=== PATIENT | female | born 1925 | race Caucasian/White ===

== ENCOUNTER 2016-10-02 09:57 | Emergency (ER) | payer OTHER ==
[~2016-10-02] VITALS: Ht 152.4 cm; Wt 71.8 kg
[~2016-10-02 09:57] MED LIST: ASPIR 8181 M1 PO; CALCIUM CITRAT200 MG PO; CENTRUM COMPLE1 EACH PO; DAIRY DIGES3000 UNIT PO; DEXILANT60 MG PO; FLEXERIL5 MG PO; HYDROCODON-ACE1 EAC7 PO; LEVOTHYROXINE75 MCG PO; LOPERAMIDE2 M1 PO; NEXIUM40 MG PO; OMEGA 3-6-91200 MG PO; OSTERA TABLET1 EACH PO; PROTONIX40 MG PO; SOTALOL80 MG PO; SYNTHROID75 MCG PO; SYSTANE 0.3-0.1 EACH BOTH EYES; TIROSINT75 MCG PO; ULTRAM50 MG; VICODIN,LORT1 TABLET PO; VITAMIN D1000 UNIT PO
[2016-10-02 10:50] LABS: HEMATOCRIT 39.5 % (36.0-46.0); MCH 30.5 PG (29.0-34.0); MCHC 34.7 G/DL (30.0-36.0); MEAN PLAT.VOLUME 10.2 uM^3 (9.5-12.4); PLATELET COUNT 252 K/uL (156-360); RBC DIS.WIDTH-CV 12.9 % (11.8-14.6); RBC DIS.WIDTH-SD 40.7 % (39-53); RED BLOOD COUNT 4.49 M/uL (3.80-5.20); WHITE BLOOD COUNT 9.3 K/uL (4.1-10.2)
[2016-10-02 10:59] LABS: CHLORIDE 107 mEq/L (99-109); POTASSIUM 4.1 mEq/L (3.7-5.4); SODIUM 139 mEq/L (136-147)
[2016-10-02 11:01] LABS: GLUCOSE 93 mg/dL (70-99)
[2016-10-02 11:02] LABS: ANION GAP 11 MEQ/L (2-14)
[2016-10-02 11:04] LABS: GFR ESTIMATE (CALCULATED) > 59 mL/min/
[2016-10-02 11:05] LABS: UREA NITROGEN (BUN) 18 mg/dL (9-23)
[2016-10-02] MEDS ORDERED: LEVO-T50 MCG PO (11:11)
[2016-10-02 12:06] LABS: ADD MIUA? YES; BILIRUBIN NEGATIVE; BLOOD LARGE; COLOR YELLOW ((YELLOW)); GLUCOSE (STRIP) NEGATIVE; KETONES TRACE; LEUKOCYTES MODERATE; NITRITE NEGATIVE; PROTEIN (STRIP) 30; SPECIFIC GRAVITY 1.021 (1.000-1.030); UROBILINOGEN 0.2 MG/DL (0.2-1.0)
[2016-10-02 12:25] LABS: BACTERIA 2+; CASTS NONE SEEN /LPF; CRYSTALS NONE SEEN; EPITHELIAL CELLS 2+; MUCUS RARE; RED BLOOD CELLS 30-40 /HPF (0-5); UCUL ADDED? YES; WHITE BLOOD CELLS 20-30 /HPF (0-5)
[2016-10-02] MEDS ORDERED: KEFLEX500 MG PO (13:52)
[2016-10-02 14:43] VITALS: BP 161/80
== END 2016-10-02 14:37 | disposition home or self-care (01) ==
LOC: EME 09:57
DX: N32.9 Bladder disorder, unspecified (principal); N39.0 Urinary tract infection, site not specified; K21.9 Gastro-esophageal reflux disease without esophagitis
CPT/HCPCS: 74176; 80048; 81003; 85027; 87086; 99281; 99284; J7030

== ENCOUNTER → 2016-10-06 | Outpatient (CLI) | payer MEDICARE, OTHER ==
[~2016-10-06] MED LIST changes: +KEFLEX500 MG PO; +LEVO-T50 MCG PO
== END | disposition home or self-care (01) ==
LOC: CDC 09:30
DX: R94.31 Abnormal electrocardiogram [ECG] [EKG] (principal); D41.4 Neoplasm of uncertain behavior of bladder; Z95.0 Presence of cardiac pacemaker
CPT/HCPCS: 93000

== ENCOUNTER 2016-12-14 17:12 | Emergency (ER) | payer OTHER ==
[~2016-12-14] VITALS: Ht 152.4 cm; Wt 70.8 kg
[2016-12-14] MEDS ORDERED: SYSTANE ULTRA 015 ML BOTH EYES (17:55)
[2016-12-14] MEDS ORDERED: TRAMADOL HCL50 MG PO (17:55)
[2016-12-14] MEDS ORDERED: MYRBETRIQ50 MG PO (17:55)
[2016-12-14 18:00] VITALS: BP 136/59
[2016-12-14 18:19] LABS: ADD MIUA? YES; BILIRUBIN NEGATIVE; BLOOD MODERATE; COLOR YELLOW ((YELLOW)); GLUCOSE (STRIP) NEGATIVE; KETONES 5; LEUKOCYTES MODERATE; NITRITE NEGATIVE; PROTEIN (STRIP) 100; SPECIFIC GRAVITY 1.019 (1.000-1.030); UROBILINOGEN 0.2 MG/DL (0.2-1.0)
[2016-12-14 18:38] LABS: EOSINOPHIL (%) 1.3 % (0-5); EOSINOPHIL COUNT 0.2 K/uL (0-0.3); IMMATURE GRANULOCYTE (%) 0.4 % (0.0-0.7); IMMATURE GRANULOCYTE COUNT 0.1 K/uL; INSTRUMENT ABS NEUTROPHIL CT 8.3 K/uL; LYMPHOCYTE COUNT 1.6 K/uL (1.0-2.8); MCH 29.1 PG (29.0-34.0); MCHC 32.5 G/DL (30.0-36.0); MCV 89.6 FL (83-99); MEAN PLAT.VOLUME 9.5 uM^3 (9.5-12.4); MONOCYTE (%) 8.9 % (3-12); NEUTROPHIL (%) 74.7 % (45-76); NEUTROPHIL COUNT 8.3 K/uL (1.8-6.4); PLATELET COUNT 270 K/uL (156-360); RBC DIS.WIDTH-CV 12.7 % (11.8-14.6); RBC DIS.WIDTH-SD 41.3 % (39-53); RED BLOOD COUNT 4.02 M/uL (3.80-5.20); WHITE BLOOD COUNT 11.2 K/uL (4.1-10.2)
[2016-12-14 18:42] LABS: WHITE BLOOD CELLS TNTC /HPF (0-5)
[2016-12-14 18:44] LABS: BACTERIA 4+ /HPF; EPITHELIAL CELLS 4+ /HPF; MUCUS NONE SEEN /LPF; RED BLOOD CELLS 20-30 /HPF (0-5); UCUL ADDED? YES
[2016-12-14 18:48] LABS: CHLORIDE 106 mEq/L (99-109); POTASSIUM 4.2 mEq/L (3.7-5.4); SODIUM 138 mEq/L (136-147)
[2016-12-14 18:50] LABS: GLUCOSE 102 mg/dL (70-99)
[2016-12-14 18:51] LABS: ANION GAP 8 MEQ/L (2-14)
[2016-12-14 18:52] LABS: TOTAL BILIRUBIN 0.3 mg/dL (0.0-1.0)
[2016-12-14 18:53] LABS: ALKALINE PHOSPHATASE 58 IU/L (3-129)
[2016-12-14 18:54] LABS: GFR ESTIMATE (CALCULATED) 55 mL/min/
[2016-12-14 18:55] LABS: UREA NITROGEN (BUN) 17 mg/dL (9-23)
[2016-12-14] MEDS ORDERED: PYRIDIUM100 MG PO (19:38)
[2016-12-14] MEDS ORDERED: KEFLEX500 MG PO (19:38)
[2016-12-14 19:59] VITALS: BP 130/70
== END 2016-12-14 20:24 | disposition home or self-care (01) ==
LOC: EME 17:12
PROVIDERS: Emergency Medicine
DX: N39.0 Urinary tract infection, site not specified (principal); N32.89 Other specified disorders of bladder; C67.9 Malignant neoplasm of bladder, unspecified
CPT/HCPCS: 80053; 81003; 85025; 87086; 99281; 99284; J0696; J7050

== ENCOUNTER 2017-01-30 09:29 | Inpatient (IN) | payer OTHER ==
[~2017-01-30] VITALS: Ht 152.4 cm; Wt 67.0 kg
[~2017-01-30 09:29] MED LIST changes: +MYRBETRIQ50 MG PO; +PYRIDIUM100 MG PO; +SYSTANE ULTRA 015 ML BOTH EYES; +TRAMADOL HCL50 MG PO
[2017-01-30 11:14] LABS: HEMATOCRIT 31.4 % (36.0-46.0); MCH 28.1 PG (29.0-34.0); MCHC 32.5 G/DL (30.0-36.0); MCV 86.5 FL (83-99); MEAN PLAT.VOLUME 9.9 uM^3 (9.5-12.4); PLATELET COUNT 311 K/uL (156-360); RBC DIS.WIDTH-CV 14.6 % (11.8-14.6); RBC DIS.WIDTH-SD 46.5 % (39-53); RED BLOOD COUNT 3.63 M/uL (3.80-5.20); WHITE BLOOD COUNT 13.8 K/uL (4.1-10.2)
[2017-01-30 11:24] LABS: CHLORIDE 106 mEq/L (99-109); POTASSIUM 4.5 mEq/L (3.7-5.4); SODIUM 135 mEq/L (136-147)
[2017-01-30 11:26] LABS: GLUCOSE 107 mg/dL (70-99)
[2017-01-30 11:28] LABS: ANION GAP 10 MEQ/L (2-14)
[2017-01-30 11:30] LABS: GFR ESTIMATE (CALCULATED) > 59 mL/min/
[2017-01-30 11:31] LABS: UREA NITROGEN (BUN) 19 mg/dL (9-23)
[2017-01-30 19:27] VITALS: BP 123/71
[2017-01-30 19:32] VITALS: BP 123/71
[2017-01-30 22:08] LABS: ADD MIUA? YES; BILIRUBIN NEGATIVE; BLOOD LARGE; COLOR YELLOW ((YELLOW)); GLUCOSE (STRIP) NEGATIVE; KETONES NEGATIVE; LEUKOCYTES LARGE; NITRITE NEGATIVE; PROTEIN (STRIP) 30; SPECIFIC GRAVITY 1.011 (1.000-1.030); UROBILINOGEN 0.2 MG/DL (0.2-1.0)
[2017-01-30 22:26] LABS: BACTERIA RARE /HPF; EPITHELIAL CELLS 2+ /HPF; MUCUS TRACE /LPF; RED BLOOD CELLS NONE SEEN /HPF (0-5); WHITE BLOOD CELLS 20-30 /HPF (0-5); WHITE BLOOD CELLS CLUMP FEW /HPF (0-5)
[2017-01-31 00:07] VITALS: BP 121/75
[2017-01-31 21:34] VITALS: BP 114/57
[2017-02-01 00:11] VITALS: BP 124/60
[2017-02-01 21:21] VITALS: BP 111/54
[2017-02-02 23:03] VITALS: BP 121/58
[2017-02-03 07:49] VITALS: BP 106/54
[2017-02-03] MEDS ORDERED: AMOXICILLIN500 MG PO (15:55)
[2017-02-03] MEDS ORDERED: TYLENOL REGULA325 MG PO (15:57)
[2017-02-03] MEDS ORDERED: Ativan Oral Concentr PO (15:58)
[2017-02-03] MEDS ORDERED: COMPAZINE10 MG PO (15:58)
[2017-02-03] MEDS ORDERED: B & O SUPPRETT1 EAC1 PR (15:58)
[2017-02-03] MEDS ORDERED: MORPHINE S10 MG/5 ML PO (15:58)
[2017-02-03] MEDS ORDERED: PHENAZOPYRIDIN100 MG PO (15:58)
[2017-02-03] MEDS ORDERED: ATIVAN0.5 MG PO (16:10)
== END 2017-02-03 20:59 | DRG 687 ==
LOC: EME 09:29 → 5EAST 16:51 → EDOF 16:51 → 5EAST 19:15
PROVIDERS: Emergency Medicine; Internal Medicine
DX: C67.9 Malignant neoplasm of bladder, unspecified (principal); C79.51 Secondary malignant neoplasm of bone; E86.0 Dehydration; N39.0 Urinary tract infection, site not specified; I10 Essential (primary) hypertension; I25.10 Atherosclerotic heart disease of native coronary artery without angina pectoris; E03.9 Hypothyroidism, unspecified; K21.9 Gastro-esophageal reflux disease without esophagitis; K58.9 Irritable bowel syndrome, unspecified; M54.30 Sciatica, unspecified side; Z95.0 Presence of cardiac pacemaker
CPT/HCPCS: 80048; 81003; 85027; 97530 GO; 99281; 99285; J2270; J7042